=== PATIENT | female | born 1975 | race Asian ===

== ENCOUNTER 2018-04-18 19:07 | Emergency (ER) | payer OTHER, SELFPAY ==
[2018-04-18] VITALS (8 sets, daily range): BP systolic 112–131; BP diastolic 68–76; PULSE 83–95; RESP 15–18; TEMP 37.9–39.2; O2SAT 97–99; BMI 26.6
[2018-04-18 19:41] LABS: Bacteria Urine None Seen
[2018-04-18 19:44] LABS: Appearance Urine UA CLEAR; Bilirubin Urine UA NEGATIVE (NEGATIVE); Color Urine UA YELLOW; Glucose Urine UA NEGATIVE (Normal); Ketones Urine UA 1+ (NEGATIVE); Leukocyte Esterase Urine UA TRACE (NEGATIVE); Nitrite Urine UA Negative (Negative); Occult Blood Urine UA 2+ (Negative); Protein Urine UA NEGATIVE (Negative); Specific Gravity Urine UA <=1.005 (1.000-1.035); Urobilinogen Urine UA 0.2 E.U./dL (0.2); pH Urine UA 6.5 (4.5-8.0)
[2018-04-18] MEDS: ACETAMINOPHEN 325 MG TABLET 975 MG PO (19:50)
[2018-04-18 20:05] LABS: Culture Indicated Urine Specimen Cultured; RBC Urine 1-5/HPF (0-5/HPF); Squamous Epithelial Cell Urine 0-1 /HPF; WBC Urine 1-5/HPF (0-5/HPF)
--- NOTE | 2018-04-18 20:43 | ED.FEMALEGU ---
HPI - Female Genitourinary General Chief complaint: Urogenital-Female Stated complaint: thinks possible kidney infection,fever Time Seen by Provider: 04/18/18 19:30 Source: patient and family Mode of arrival: ambulatory Limitations: no limitations History of Present Illness HPI Narrative: Patient presents to the emergency department at the request of her primary care provider out [facility] for evaluation of fever in the aftermath of 1 week of treatment for UTI. About 1 week ago she was seen in the clinic and diagnosis of UTI with a urine culture noting E coli. The patient felt much better after 7 days of Bactrim but soon after completion of this course she spiked a temperature at home, max 102.6. She denies other systemic symptoms such is nausea, vomiting or chills but does state she does not feel all that well. She presented to her primary care provider earlier in the day and was given Rocephin intramuscular injection, a prescription for nitrofurantoin and encouraged to see the emergency department for further evaluation. She denies flank pain but does state frequent urination. She denies abdominal pain, pelvic pain, vaginal bleeding or discharge MD Complaint: UTI Onset (ago): day(s) Urinary symptoms: Dysuria, Flank Pain and Frequency Related Data Previous Rx's Medication Instructions Recorded cephalexin [Keflex] 500 mg PO QID 14 Days #56 cap 04/18/18 ondansetron [Zofran ODT] 4 mg PO Q6-8H PRN #14 tab 04/18/18 Allergies Allergy/AdvReac Type Severity Reaction Status Date / Time No Known Drug Allergies Allergy Verified 04/18/18 19:13 Review of Systems Review of Systems All systems reviewed & are unremarkable except as noted in HPI and below Constitutional Denies chills, Reports fever(s), Denies lethargy and Denies weakness Eyes Denies change in vision, Denies eye discharge, Denies irritation and Denies loss of vision ENT Ears, Nose, Mouth, and Throat: Denies change in voice, Denies neck pain and Denies sore throat Cardiovascular Denies chest pain, Denies irregular heart rhythm, Denies lightheadedness, Denies palpitations, Denies dyspnea, Denies dyspnea on exertion and Denies orthopnea Respiratory Denies cough, Denies dyspnea, Denies dyspnea on exertion and Denies wheezing Gastrointestinal Gastrointestinal: Denies abdominal pain, Denies change in bowel habits, Denies diarrhea, Denies nausea and Denies vomiting Genitourinary Denies hematuria, Reports urinary frequency, Denies flank pain, Denies urinary incontinence and Reports urinary urgency Musculoskeletal Denies neck pain Integumentary/Breasts Denies pruritus, Denies erythema, Denies rash and Denies wounds Neurologic Denies confusion, Denies loss of vision and Denies weakness Psychiatric Denies anxiety, Denies confusion, Denies depression, Denies homicidal ideation and Denies suicidal ideation Endocrine Denies palpitations Hematologic/Lymphatic Denies easy bruising Allergic/Immunologic Denies wheezing [facility] Social History Smoking Status: Never smoker Exam Narrative Exam Narrative: Pleasant 42-year-old female in no obvious significant distress Initial Vital Signs Initial Vital Signs: Vital Signs Temperature 102.5 F H 04/18/18 19:13 Pulse Rate 95 H 04/18/18 19:13 Respiratory Rate 15 04/18/18 19:13 Blood Pressure 128/76 H 04/18/18 19:13 Pulse Oximetry 97 04/18/18 19:13 Const General: cooperative and well developed Nutritional Appearance: well nourished Orientation: alert, awake, oriented x3 and not confused HENFL Head: normocephalic and atraumatic Ears: external ears normal and TM's normal bilaterally Nose: external nose normal and No nasal discharge Face and sinus: sinuses nontender, face symmetric, no sinus tenderness and No dry mucous membranes Mouth: oral mucosae normal and moist mucous membranes Teeth and gingiva: dentition normal Throat: tonsils normal and uvula midline Neck Neck: normal visual inspection, trachea midline, No lymphadenopathy, No midline deformity and No JVD Lymphatic: No lymphedema Cardio Rate: regular rate Rhythm: regular rhythm Heart Sounds: no click, no gallops, no murmurs and no rubs Pulses: normal peripheral pulses Back/Spine/Pelvis Back: No CVA tenderness Cervical Spine: cervical ROM normal and No pain with cervical ROM Thoracic/Lumbar Spine: thoracic and lumbar spine normal to inspection Neuro General: alert, oriented x3, gait normal and no focal motor deficits Speech: speech normal Psych Appearance: well kempt Mental Status: mental status grossly normal Attitude: cooperative Thought Content: normal and suicidality Judgment: judgment good Course Orders Ordered: ED Orders 04/18/18 19:21 Urinalysis and Microscopic Stat Urine Culture Stat 04/18/18 20:20 Complete Blood Count AUTO DIFF Stat Lactate (Lactic Acid) Stat Procalcitonin Stat 04/18/18 20:25 Basic Metabolic Panel Stat Blood Culture Stat Discontinued Medications Acetaminophen (Tylenol) 975 mg PO NOW ONE Stop: 04/18/18 19:47 Last Admin: 04/18/18 19:50 Dose: 975 mg Sodium Chloride (Normal Saline 0.9%) 1,000 mls @ 1,000 mls/hr IV BOLUS ONE Stop: 04/18/18 21:07 Last Admin: 04/18/18 20:44 Dose: 1,000 mls/hr Vital Signs - 8 hr 04/18/18 20:43 04/18/18 20:48 04/18/18 20:50 Temperature 100.3 F H 100.3 F H Pulse Rate 83 Respiratory Rate 18 Blood Pressure Blood Pressure [Left Arm] 118/68 Pulse Oximetry 97 04/18/18 21:30 04/18/18 22:24 Temperature Pulse Rate 85 85 Respiratory Rate 16 16 Blood Pressure 112/71 Blood Pressure [Left Arm] 112/71 Pulse Oximetry 99 99 MDM - Female Genitourinary Lab Data Result diagrams: 04/18/18 20:20 04/18/18 20:25 Lab Results 04/18/18 04/18/18 04/18/18 Range/Units 19:21 20:20 20:20 WBC (4.5-11.0) X10^3/uL RBC (4.0-5.2) X10^6/uL Hgb (12.0-16.0) g/dL Hct (36-46) % MCV (80-100) fL MCH (26-34) PG MCHC (30-36) % RDW (11.6-14.8) % Plt Count (150-400) X10^3/uL Neut % (Auto) (50-75) % Lymph % (Auto) (25-40) % [place] % (Auto) (3-14) % Eos % (Auto) (2-4) % Baso % (Auto) (0-2) % Neut # (Auto) (1027-2485) /uL Sodium (137-145) mmol/L Potassium (3.4-5.1) mmol/L Chloride (98-107) mmol/L Carbon Dioxide (22-32) mmol/L BUN (7-17) mg/dL Creatinine (0.52-1.04) mg/dL Estimated GFR (>60) mL/min BUN/Creatinine Ratio (6-22) Glucose (70-100) mg/dL Lactate 0.5 L (0.7-2.1) mmol/L Calcium (8.4-10.2) mg/dL Procalcitonin 0.25 (<0.5) ng/mL Urine Color Yellow Urine Appearance Clear Urine pH 6.5 (4.5-8.0) Ur Specific [place] <=1.005 (1.000-1.035) Urine Protein Negative (Negative) Urine Glucose (UA) Negative (Normal) g/dL Urine Ketones 1+ H (NEGATIVE) Urine Occult Blood 2+ H (Negative) Urine Nitrate Negative (Negative) Urine Bilirubin Negative (NEGATIVE) Urine Urobilinogen 0.2 (0.2) E.U./dL Ur Leukocyte Esterase Trace H (NEGATIVE) Urine RBC 1-5/hpf (0-5/HPF) Urine WBC 1-5/hpf (0-5/HPF) Ur Squamous Epith Cells 0-1 /hpf Urine Bacteria None seen (None) Ur Culture Indicated? Specimen cultured Micro UA Comment Not Reportable 04/18/18 04/18/18 Range/Units 20:20 20:25 WBC 12.1 H (4.5-11.0) X10^3/uL RBC 4.31 (4.0-5.2) X10^6/uL Hgb 13.8 (12.0-16.0) g/dL Hct 39.7 (36-46) % MCV 92.0 (80-100) fL MCH 32.1 (26-34) PG MCHC 34.8 (30-36) % RDW 12.2 (11.6-14.8) % Plt Count 256 (150-400) X10^3/uL Neut % (Auto) 74.6 (50-75) % Lymph % (Auto) 11.9 L (25-40) % Butler % (Auto) 13.0 (3-14) % Eos % (Auto) 0.0 L (2-4) % Baso % (Auto) 0.5 (0-2) % Neut # (Auto) 9000 H (2075-6448) /uL Sodium 135 L (137-145) mmol/L Potassium 3.8 (3.4-5.1) mmol/L Chloride 100 (98-107) mmol/L Carbon Dioxide 24 (22-32) mmol/L BUN 7 (7-17) mg/dL Creatinine 0.60 (0.52-1.04) mg/dL Estimated GFR > 60.0 (>60) mL/min BUN/Creatinine Ratio 11.7 (6-22) Glucose 119 H (70-100) mg/dL Lactate (0.7-2.1) mmol/L Calcium 8.6 (8.4-10.2) mg/dL Procalcitonin (<0.5) ng/mL Urine Color Urine Appearance Urine pH (4.5-8.0) Ur Specific [place] (1.000-1.035) Urine Protein (Negative) Urine Glucose (UA) (Normal) g/dL Urine Ketones (NEGATIVE) Urine Occult Blood (Negative) Urine Nitrate (Negative) Urine Bilirubin (NEGATIVE) Urine Urobilinogen (0.2) E.U./dL Ur Leukocyte Esterase (NEGATIVE) Urine RBC (0-5/HPF) Urine WBC (0-5/HPF) Ur Squamous Epith Cells Urine Bacteria (None) Ur Culture Indicated? Micro UA Comment MDM Narrative Medical decision making narrative: Patient has very minimal symptoms currently but recent urinary tract infection with positive urine cultures would suggest this as the etiology in the absence of other symptoms such as runny nose, sore throat or cough, chest pain, shortness of breath, abdominal pain, pelvic pain or vaginal discharge. Though she was initially febrile the patient never was tachycardic or hypotensive, she does have a slight elevation in her white blood cells but evaluation is otherwise relatively unremarkable. She had already been given Rocephin today and a prescription of Keflex was picked up by her [id number] during her visit. Discharge Plan Departure Patient Disposition: Home, Self-Care Clinical Impression: Pyelonephritis Discharge Date/Time: 04/18/18 22:25 Interventions: ED Discharge Assessment Last Done: 04/18/18 22:24 Instructions: DI for Kidney Infection Activity Restrictions/Additional Instructions: *You have been diagnosed with [ pyelonephritis ] *What to do: *Take medications as directed *Follow up with your primary care provider in 2-3 days *Return to ER if you should have any new, worsening or concerning symptoms Prescriptions: New cephalexin [Keflex] 500 mg capsule 500 mg PO QID 14 Days Qty: 56 RF: 0 ondansetron [Zofran ODT] 4 mg tablet,disintegrating 4 mg PO Q6-8H PRN (Reason: nausea and vomiting) Qty: 14 RF: 0 Referrals: Jarad Costa MD [Primary Care Provider] -
[2018-04-18] MEDS: SODIUM CHLORIDE 0.9% 1,000 ML 1000 ML IV (20:44)
--- NOTE | 2018-04-18 20:48 | PC.NURSE ---
Patient reports completed antibiotics for a UTI when she suddenly spiked a fever today. Mild pain at end of urination still but otherwise she states she feels much better. Had urine tested at clinic on [place] and was given a shot of Rocephin. Sent here for further testing.
--- NOTE | 2018-04-18 20:50 | PC.NURSE ---
Reports feels much better after tylenol. Chills have gone away and now I feel hot.
[2018-04-18 20:58] LABS: Lactate (Lactic Acid) 0.5 mmol/L (0.7-2.1)
[2018-04-18 20:59] LABS: BUN Creatinine Ratio 11.7 (6-22); Blood Urea Nitrogen 7 mg/dL (7-17); Calcium 8.6 mg/dL (8.4-10.2); Carbon Dioxide 24 mmol/L (22-32); Chloride 100 mmol/L (98-107); Estimated Glomerular Filt Rate > 60.0 mL/min (>60); Glucose 119 mg/dL (70-100); HEMOLYSIS 16 (0-50); Potassium 3.8 mmol/L (3.4-5.1); Sodium 135 mmol/L (137-145)
[2018-04-18 21:20] LABS: Procalcitonin 0.25 ng/mL (<0.5)
[2018-04-18 21:45] LABS: Add Manual Diff / Slide Review NO; Basophils Percent Auto 0.5 % (0-2); Hematocrit 39.7 % (36-46); Hemoglobin 13.8 g/dL (12.0-16.0); Lymphocytes Percent Auto 11.9 % (25-40); Mean Corpuscular HGB Conc 34.8 % (30-36); Mean Corpuscular Hemoglobin 32.1 PG (26-34); Neutrophils Absolute Auto 9000 /uL (3000-5900); Neutrophils Percent Auto 74.6 % (50-75); Platelet Count 256 X10^3/uL (150-400); Red Blood Cell Count 4.31 X10^6/uL (4.0-5.2); Red Cell Distribution Width 12.2 % (11.6-14.8); White Blood Cell Count 12.1 X10^3/uL (4.5-11.0)
== END 2018-04-18 22:25 | disposition home or self-care (01) ==
PROVIDERS: Emergency Provider Emergency Medicine; PCP Family Medicine
DX: N12 Tubulo-interstitial nephritis, not specified as acute or chronic (principal)
CPT/HCPCS: 36415; 36591; 80048; 81001; 81025; 83605; 84145; 85025; 87040; 87086; 96360; 99283; 99284

== ENCOUNTER → 2021-12-26 12:14 | Outpatient (CLI) | payer OTHER, SELFPAY ==
[2021-12-26 20:53] LABS: COVID19 - ORCAS (NP or Nasal) Negative (Negative)
== END ==
PROVIDERS: PCP Physician Assistant; Visit Provider Physician Assistant
DX: Z20.822 Contact with and (suspected) exposure to COVID-19 (principal)
CPT/HCPCS: U0003

== ENCOUNTER → 2022-01-04 08:30 | Outpatient (CLI) | payer OTHER, SELFPAY ==
[2022-01-04 19:26] LABS: Add Manual Diff / Slide Review NO; Basophils Absolute Auto 100 /uL (0-100); Basophils Percent Auto 0.8 % (0-2); Eosinophils Absolute Auto 300 /uL (0-450); Eosinophils Percent Auto 4.5 % (2-4); Hematocrit 41.4 % (36-46); Hemoglobin 14.4 g/dL (12.0-16.0); Lymphocytes Absolute Auto 2700 /uL (1100-4500); Lymphocytes Percent Auto 39.4 % (25-40); Mean Corpuscular HGB Conc 34.9 % (30-36); Mean Corpuscular Hemoglobin 32.2 PG (26-34); Mean Corpuscular Volume 92.4 fL (80-100); Monocytes Absolute Auto 600 /uL (0-900); Monocytes Percent Auto 8.9 % (3-14); Neutrophils Absolute Auto 3200 /uL (1500-7000); Neutrophils Percent Auto 46.4 % (50-75); Platelet Count 295 X10^3/uL (150-400); Red Blood Cell Count 4.48 X10^6/uL (4.0-5.2); Red Cell Distribution Width 12.6 % (11.6-14.8); White Blood Cell Count 6.8 X10^3/uL (4.5-11.0)
[2022-01-04 19:50] LABS: Alanine Aminotransferase 12 IU/L (<35); Albumin Globulin Ratio 1.3 (1.0-2.8); Alkaline Phosphatase 33 U/L (38-126); Aspartate Aminotransferase 19 IU/L (14-36); BUN Creatinine Ratio 13.6 (6-22); Bilirubin Total 0.9 mg/dL (0.2-1.3); Blood Urea Nitrogen 9 mg/dL (7-17); Calcium 9.2 mg/dL (8.4-10.2); Carbon Dioxide 28 mmol/L (22-32); Chloride 104 mmol/L (98-107); Cholesterol 199 mg/dL (140-199); Estimated Glomerular Filt Rate > 60.0 mL/min (>60); Globulin 3.1 g/dL (1.7-4.1); Glucose 94 mg/dL (70-100); HDL Cholesterol 62 mg/dL (40-60); HEMOLYSIS < 15 (0-50); LDL Cholesterol Calculated 122 mg/dL (<100); Potassium 4.3 mmol/L (3.4-5.1); Sodium 137 mmol/L (137-145); Total Protein 7.1 g/dL (6.3-8.2); Triglycerides 73 mg/dL (35-150)
[2022-01-04 20:10] LABS: TSH w/ Reflex to FT4 1.48 uIU/mL (0.47-4.68)
== END ==
PROVIDERS: PCP Physician Assistant; Visit Provider Physician Assistant
DX: N85.8 Other specified noninflammatory disorders of uterus (principal); R63.5 Abnormal weight gain; Z13.220 Encounter for screening for lipoid disorders; Z86.59 Personal history of other mental and behavioral disorders
CPT/HCPCS: 80053; 80061; 84443; 85025

== ENCOUNTER → 2022-02-15 12:04 | Outpatient (CLI) | payer OTHER, SELFPAY ==
[2022-02-15 19:10] LABS: Appearance Urine UA CLEAR; Bilirubin Urine UA NEGATIVE (NEGATIVE); Color Urine UA YELLOW; Glucose Urine UA NEGATIVE (Negative); Ketones Urine UA NEGATIVE (NEGATIVE); Leukocyte Esterase Urine UA TRACE (NEGATIVE); Nitrite Urine UA NEGATIVE (Negative); Occult Blood Urine UA NEGATIVE (Negative); Protein Urine UA NEGATIVE (Negative); Specific Gravity Urine UA <=1.005 (1.000-1.035); Urobilinogen Urine UA 0.2 E.U./dL (0.2)
[2022-02-15 19:24] LABS: Bacteria Urine None Seen; Culture Indicated Urine Cult Not Indicated; RBC Urine 0-1/HPF (0-5/HPF); WBC Urine 0-1/HPF (0-5/HPF)
== END ==
PROVIDERS: PCP Physician Assistant; Visit Provider Family Medicine
DX: N34.3 Urethral syndrome, unspecified (principal)
CPT/HCPCS: 81001

== ENCOUNTER → 2022-02-28 10:59 | Outpatient (CLI) | payer OTHER, SELFPAY ==
--- NOTE | 2022-02-28 11:00 | DI.MG.S_ITS ---
BILATERAL DIGITAL SCREENING MAMMOGRAM 3D/2D WITH CAD: 02/28/2022 CLINICAL: Baseline exam Routine screening. No prior exams were available for comparison. The tissue of both breasts is heterogeneously dense. This may lower the sensitivity of mammography. Current study was also evaluated with a Computer Aided Detection (CAD) system. No significant masses, calcifications, or other findings are seen in either breast. IMPRESSION: NEGATIVE There is no mammographic evidence of malignancy. A 1 year screening mammogram is recommended. This exam was interpreted at Station ID: [id number]. NOTE: For mammograms, a report in lay terms will be sent to the patient. Approximately 15% of breast malignancies will not be visualized mammographically. In the management of a palpable breast mass, a negative mammogram must not discourage biopsy of a clinically suspicious lesion. Electronically Signed By: Ruthie elkins/ileana:02/28/2022 13:34:23 letter sent: Normal Exam ACR BI-RADS Category 1: Negative [id number]
== END ==
PROVIDERS: PCP Physician Assistant; Referring Provider Physician Assistant; Visit Provider Physician Assistant
DX: Z12.31 Encounter for screening mammogram for malignant neoplasm of breast (principal)
CPT/HCPCS: 77063; 77067

== ENCOUNTER → 2022-04-19 13:43 | Outpatient (CLI) | payer OTHER, SELFPAY ==
[2022-04-19 19:13] LABS: Add Manual Diff / Slide Review NO; Basophils Absolute Auto 0 /uL (0-100); Basophils Percent Auto 0.5 % (0-2); Eosinophils Absolute Auto 300 /uL (0-450); Eosinophils Percent Auto 4.1 % (2-4); Hematocrit 33.6 % (36-46); Hemoglobin 11.9 g/dL (12.0-16.0); Lymphocytes Absolute Auto 3000 /uL (1100-4500); Lymphocytes Percent Auto 47.3 % (25-40); Mean Corpuscular HGB Conc 35.3 % (30-36); Mean Corpuscular Hemoglobin 32.2 PG (26-34); Mean Corpuscular Volume 91.1 fL (80-100); Monocytes Absolute Auto 600 /uL (0-900); Neutrophils Absolute Auto 2500 /uL (1500-7000); Neutrophils Percent Auto 39.1 % (50-75); Platelet Count 329 X10^3/uL (150-400); Red Blood Cell Count 3.69 X10^6/uL (4.0-5.2); Red Cell Distribution Width 12.3 % (11.6-14.8); White Blood Cell Count 6.4 X10^3/uL (4.5-11.0)
[2022-04-19 19:29] LABS: HEMOLYSIS < 15 (0-50); Iron 77 ug/dL (37-170)
[2022-04-19 19:32] LABS: D Dimer < 200 ng/mL (<230)
[2022-04-19 19:43] LABS: Percent Iron Saturation 19 % (15-50); Total Iron Binding Capacity 404 ug/dL (265-497); Transferrin 306 mg/dL (206-381)
[2022-04-19 20:12] LABS: Ferritin 10 ng/mL (6-137)
== END ==
PROVIDERS: PCP Physician Assistant; Visit Provider Physician Assistant
DX: N92.0 Excessive and frequent menstruation with regular cycle (principal); M79.89 Other specified soft tissue disorders
CPT/HCPCS: 82728; 83540; 83550; 85025; 85379

== ENCOUNTER → 2022-04-26 11:07 | Outpatient (CLI) | payer OTHER, SELFPAY ==
[2022-04-26 12:41] LABS: Prolactin 13.6 ng/mL (3.0-18.6)
[2022-04-26 12:45] LABS: Follicle Stimulating Hormone 6.12 mIU/mL; Luteinizing Hormone 1.44 mIU/mL
== END ==
PROVIDERS: PCP Physician Assistant; Referring Provider Obstetrics & Gynecology; Visit Provider Obstetrics & Gynecology
DX: N91.4 Secondary oligomenorrhea (principal)
CPT/HCPCS: 36415; 83001; 83002; 84146

== ENCOUNTER → 2024-08-10 10:54 | Outpatient (CLI) | payer OTHER, SELFPAY ==
--- NOTE | 2024-08-10 11:00 | DI.MG.S_ITS ---
BILATERAL DIGITAL SCREENING MAMMOGRAM 3D/2D WITH CAD: 08/10/2024 CLINICAL: Routine screening. Comparison is made to exam dated: 02/28/2022 mammogram - [facility]. The breasts are heterogeneously dense, which may obscure small masses (category c / 51-75% glandular tissue). Current study was also evaluated with a Computer Aided Detection (CAD) system. No significant masses, calcifications, or other findings are seen in either breast. There has been no significant interval change. IMPRESSION: NEGATIVE There is no mammographic evidence of malignancy. A 1 year screening mammogram is recommended. Based on the Tyrer Cuzick model (a risk assessment model) the patient's lifetime risk is 11.0% and her 10 year risk is 2.1%. According to the ACR, ACS, and NCCN guidelines, an annual breast MRI exam along with mammogram is recommended if the patient's lifetime risk is 20% or greater. This exam was interpreted at Station ID: [id number]. NOTE: For mammograms, a report in lay terms will be sent to the patient. Approximately 15% of breast malignancies will not be visualized mammographically. In the management of a palpable breast mass, a negative mammogram must not discourage biopsy of a clinically suspicious lesion. Electronically Signed By: Arvin dumont/ileana:08/11/2024 06:27:42 letter sent: Normal Exam ACR BI-RADS Category 1: Negative
--- NOTE | 2024-08-10 11:00 | DI.US.S_ITS ---
PROCEDURE: US PELVIC COMPLETE INDICATIONS: FIBROID TECHNIQUE: Real-time scanning was performed of the pelvic organs, with image documentation. Additional endovaginal scanning was necessary due to incomplete visualization of the adnexal and endometrial structures by transabdominal scanning. COMPARISON: None. FINDINGS: Uterus: Uterus is anteverted and enlarged and size at 12.6 x 9.7 x 10.9 cm. The myometrium is homogeneous. The endometrium measures 11.3 mm combined thickness. Heterogeneous focus in the left mid intramural region measuring 8.3 x 7.6 x 9.0 cm. Ovaries: The right ovary measures 2.3 x 6.0 x 2.7 cm, with a calculated ovarian volume of 19.5 cc. The left ovary is not visualized. Simple right ovarian cyst is present measuring 2.4 cm. Somewhat complex cyst on the right is present measuring 1.7 cm. Other: No pathologic free abdominal or pelvic fluid. IMPRESSION: Heterogeneous focus within the uterus presumed to be fibroid. Simple and complex right ovarian cysts. We strive to produce accurate, complete, and clear reports of imaging services. To assist us in improving patient care, this report was composed using standard report templates and voice recognition software. Therefore, it may contain abnormal punctuation, insertions and/or omissions. Occasional wrong-word or sound-alike substitutions may occur. Though we review the report and make efforts to correct it, we do recommend that the report be read carefully in proper context to recognize any text inaccuracies. Dictated by: Eugenie Concepcion M.D. on 08/10/2024 at 14:51 Approved by: Eugenie Concepcion M.D. on 08/10/2024 at 14:52
== END ==
PROVIDERS: PCP Physician Assistant; Referring Provider Physician Assistant; Visit Provider Physician Assistant
DX: Z12.31 Encounter for screening mammogram for malignant neoplasm of breast (principal); R92.333 Mammographic heterogeneous density, bilateral breasts; D25.9 Leiomyoma of uterus, unspecified; N83.291 Other ovarian cyst, right side; E27.8 Other specified disorders of adrenal gland
CPT/HCPCS: 76830; 76856; 77063; 77067

== ENCOUNTER → 2025-05-31 11:33 | Outpatient (CLI) | payer OTHER, SELFPAY ==
[2025-05-31 20:41] LABS: Add Manual Diff / Slide Review NO; Hematocrit 42.3 % (36-46); Hemoglobin 14.7 g/dL (12.0-16.0); Lymphocytes Absolute Auto 2300 /uL (1100-4500); Mean Corpuscular HGB Conc 34.9 % (30-36); Mean Corpuscular Hemoglobin 32.2 PG (26-34); Mean Corpuscular Volume 92.3 fL (80-100); Platelet Count 290 X10^3/uL (150-400)
[2025-05-31 20:42] LABS: Alanine Aminotransferase 20 IU/L (<35); Albumin 4.0 g/dL (3.5-5.0); Albumin Globulin Ratio 1.3 (1.0-2.8); Alkaline Phosphatase 53 U/L (38-126); Blood Urea Nitrogen 10 mg/dL (7-17); Calcium 9.0 mg/dL (8.4-10.2); Carbon Dioxide 27 mmol/L (22-32); Chloride 104 mmol/L (98-107); Estimated Glomerular Filt Rate > 60 mL/min (>60); Globulin 3.2 g/dL (1.7-4.1); Glucose 98 mg/dL (70-99); HEMOLYSIS < 15 (0-50); Potassium 4.4 mmol/L (3.4-5.1); Sodium 137 mmol/L (137-145); Total Protein 7.2 g/dL (6.3-8.2)
[2025-05-31 20:45] LABS: HEMOLYSIS < 15 (0-50); Iron 169 ug/dL (37-170)
[2025-05-31 20:52] LABS: Hemoglobin A1C% w Est Avg Glu 5.3 % (4.0-6.0)
[2025-05-31 20:58] LABS: Percent Iron Saturation 54 % (15-50); Total Iron Binding Capacity 311 ug/dL (265-497); Transferrin 241 mg/dL (206-381)
[2025-05-31 21:05] LABS: Free T4, Direct Thyroxine 1.01 ng/dL (0.78-2.19); T4 Total Thyroxine 6.50 ug/dL (5.5-11.0); Triiodothryronine T3 Uptake 32.9 % (23.5-40.5)
[2025-05-31 21:17] LABS: Ferritin 26 ng/mL (6-137)
[2025-05-31 21:18] LABS: Thyroid Stimulating Hormone 1.17 uIU/mL (0.47-4.68)
[2025-06-01 17:13] LABS: Hep C Virus Ab w/Reflex Quant NEGATIVE s/c (NEGATIVE)
[2025-06-01 21:40] LABS: Cholesterol,Total 212 mg/dL (100-199); HDL Cholesterol 62 mg/dL (>39); LDL Cholesterol Cal 132 mg/dL (0-99); Triglycerides 101 mg/dL (0-149)
== END ==
PROVIDERS: PCP Physician Assistant; Visit Provider Obstetrics & Gynecology
DX: N95.1 Menopausal and female climacteric states (principal); Z86.59 Personal history of other mental and behavioral disorders; Z13.6 Encounter for screening for cardiovascular disorders; M25.552 Pain in left hip; Z79.899 Other long term (current) drug therapy
CPT/HCPCS: 80053; 80061; 82172; 82728; 83036; 83540; 83550; 84436; 84439; 84443; 84479; 85025; 86803